=== PATIENT | male | born 1995 | race Two or more races ===

== ENCOUNTER 2019-12-01 02:14 | Emergency (ER) | payer SELFPAY ==
[~2019-12-01] VITALS: Ht 175.3 cm; Wt 80.7 kg
--- NOTE | 2019-12-01 02:35 | NUR ---
ED Nurse Note: Pt walked in c/o RT knee pain from unk cause. Pt stated there is a lot of pressure and unable to put weight. patient ao4. nad. vss. accompanied by friend. resting in bed; safety measures met.
--- NOTE | 2019-12-01 02:46 | Emergency Room Report ---
History of Present Illness General Chief Complaint: Lower Extremity Injury Source: Patient Present Illness HPI Disclaimer: Please note that this report is being documented using [employer] technology. This can lead to erroneous entry secondary to incorrect interpretation by the dictating instrument. HPI: 24-year-old male presents for evaluation of right knee pain and swelling. Symptoms began yesterday morning. Notes atraumatic swelling and progressive pain over the medial aspect of the right knee. Cannot recall specific injury, bending, twisting awkwardly or any trauma. No history of problems with his knee before. No history of gout, pseudogout, other crystal diseases. Denies any recent insect bite, skin breakdown, scratches or puncture wounds. Denies any overlying skin changes. No rash. No fever, no chills. PMH: Asthma PSH: Denies Allergies: Denies Social Hx: Alcohol use Allergies: Coded Allergies: No Known Allergies (Unverified , 12/01/19) Nursing Documentation-PMH Hx Asthma: Yes Review of Systems All Other Systems: negative except mentioned in HPI Physical Exam Vital Signs Date Time Temp Pulse Resp B/P (MAP) Pulse Ox O2 Delivery O2 Flow Rate FiO2 12/01/19 02:31 98.4 83 16 140/82 (101) 98 Room Air General: Awake and alert, no acute distress HEENT: NC/AT. EOMI. Resp: Normal work of breathing Skin: Intact. No abrasions, laceration or rash over the exposed skin MSK: Normal tone and bulk. Moving all extremities. No obvious deformity. Mild edema around the right knee without overlying skin changes. No erythema, no warmth. Tenderness palpation over the proximal tibia particularly over the medial aspect of the joint. No tenderness over the patella. Joint itself is stable. No laxity. Neuro: Awake and alert. Mentating appropriately Procedures Additional Procedure Procedure Narrative Arthrocentesis: Right knee Medial approach infrapatellar Anesthesia using approximately 5 cc 1% lidocaine without epinephrine Extracted approximately 15 cc of straw-colored translucent fluid. No blood. No pus Patient tolerated the procedure well. No complications. Estimated blood loss 2 cc. Sterile dressing applied. Patricio bandage applied. Fluid sent for analysis. Medical Decision Making Diagnostic Impression: Primary Impression: Knee effusion ER Course Is a 24-year-old male presenting for evaluation of atraumatic right knee pain and swelling. Differential includes but is not limited to gout, pseudogout, occult injury, ligamentous strain, sprain, meniscal injury, arthritis, inflammatory process, septic joint. No obvious overlying evidence of cellulitis or indication of septic joint at this time. An x-ray was performed showing moderate effusion without bony pathology. Arthrocentesis was performed withdrawing approximately 15 cc straw-colored translucent fluid. Analysis showsClear fluid. 173 nucleated cells. Crystal analysis is send out. Gram stain shows no organisms and few white cells. Most consistent with either inflammatory arthritis or noninflammatory arthritis but no concern for septic joint at this time. Will discharge with Motrin. Will call back for crystal analysis results. Given the number for orthopedic surgery follow-up. Can return to the emergency department new or worsening symptoms. Labs Test 12/01/19 03:45 Body Fluid Source Right knee Body Fluid Volume 8 mL Body Fluid Appearance Clear (Clear) Body Fluid RBC 178 /CUMM Body Fluid Total Nucleated Cells 173 /CUMM Synovial Fluid Crystals None seen Last Vital Signs Date Time Temp Pulse Resp B/P (MAP) Pulse Ox O2 Delivery O2 Flow Rate FiO2 12/01/19 02:31 98.4 83 16 140/82 (101) 98 Room Air Disposition: HOME, SELF-CARE Condition: Stable Scripts Ibuprofen* (MOTRIN*) 600 Mg Tablet 600 MG ORAL Q8H PRN for For Pain, #30 TAB 0 Refills Prov: James Serna MD 12/01/19 James Serna MD Dec 01, 2019 02:46
--- NOTE | 2019-12-01 02:47 | NUR ---
ED Nurse Note: imaging at bedside for xray
--- NOTE | 2019-12-01 03:05 | Diagnostic Imaging Report ---
EXAM: XR Right Knee, 3 Views CLINICAL HISTORY: PAIN TECHNIQUE: Three views of the right knee. COMPARISON: None. FINDINGS: Bones/joints: No acute fracture, dislocation, or destructive processes noted. Small right knee joint effusion is suggested. Soft tissues: Soft tissues are unremarkable. IMPRESSION: Small right knee joint effusion of uncertain significance. Magnetic resonance imaging of the right knee joint is suggested for follow-up.
[2019-12-01] MEDS ORDERED: Lidocaine 1% Plain 30 ml INJ ONE (03:30)
--- NOTE | 2019-12-01 03:45 | NUR ---
ED Nurse Note: assisted ermd with arthrocentesis. synovial fluid collected from right knee; sent down to lab.
[2019-12-01] MEDS ORDERED: HYDROcodone/Acetamin 7.5/325 tab ORAL ONE (05:00)
--- NOTE | 2019-12-01 05:55 | NUR ---
ED Nurse Note: patient sleeping in bed with no acute distress. parent at bedside.
[2019-12-01] MEDS ORDERED: IBUPROFEN600 MG ORAL (06:06)
[2019-12-01 06:20] VITALS: BP 140/82
--- NOTE | 2019-12-01 06:20 | NUR ---
ER DISCHARGE NOTE: Patient is cleared to be discharged per ERMD, pt is aox4, on room air, with stable vital signs. accompanied by parent. pt was given dc and prescription instructions, pt was able to verbalize understanding, pt id band removed. pt is able to ambulate with steady gait. pt took all belongings.
== END 2019-12-01 06:20 | disposition home or self-care (01) ==
LOC: EMR 02:52
DX: M25.461 Effusion, right knee (principal)
CPT/HCPCS: 20610; 73562; 82945; 84157; 87070; 87205; 89050; 89060; 99284; J2001